=== PATIENT | female | born 1995 | race Caucasian/White ===

== ENCOUNTER 2021-05-07 20:25 | Inpatient (IN) | payer OTHER ==
[2021-05-07] MEDS ORDERED: DINOPROSTONE 10 MG VAGINAL SUPPOSITORY VG ONE (22:00)
[2021-05-07 22:02] LABS: BASO % 0.3 % (0-2.0); EOS % 0.3 % (0-4.5); HEMATOCRIT 25.5 % (32.4-45.2); MCHC 31.5 g/dl (32.0-36.0); MEAN CELL VOLUME 66.6 fl (80-96); MEAN PLT VOLUME 7.1 fl (7.5-11.1); MONO % 5.2 % (3.8-10.2); NEUT % 75.2 % (42.8-82.8); PLATELET COUNT 505 10^3/uL (134-434); RBC 3.83 M/mm3 (3.60-5.2); WHITE BLOOD COUNT 6.2 K/mm3 (4.0-10.0)
[2021-05-07 22:07] LABS: INR 1.28 (0.83-1.09); PROTHROMBIN TIME (PATIENT) 14.4 SEC (9.7-13.0)
[2021-05-07 22:09] LABS: ACTIVATED PTT 26.7 SECONDS (25.2-36.5)
[2021-05-07 22:28] LABS: CALCIUM 8.3 mg/dL (8.5-10.1)
[2021-05-07 22:29] LABS: BLOOD UREA NITROGEN 6.5 mg/dL (7-18)
[2021-05-07 22:32] LABS: CREATININE 0.5 mg/dL (0.55-1.3)
[2021-05-07 22:53] VITALS: BMI 31.3
[2021-05-07 23:39] LABS: ANISOCYTOSIS 3+; MACROCYTOSIS 0; OVALOCYTE 1+; PLATELET ESTIMATE INCREASED
[2021-05-08 01:11] LABS: BASO % 0.6 % (0-2.0); EOS % 0.3 % (0-4.5); HEMATOCRIT 23.8 % (32.4-45.2); HEMOGLOBIN 7.5 GM/dL (10.7-15.3); LYMPH % 23.3 % (8-40); MCH 21.3 pg (25.7-33.7); MCHC 31.7 g/dl (32.0-36.0); MEAN CELL VOLUME 67.1 fl (80-96); MONO % 5.8 % (3.8-10.2); PLATELET COUNT 442 10^3/uL (134-434); RBC 3.54 M/mm3 (3.60-5.2); RDW 19.4 % (11.6-15.6); WHITE BLOOD COUNT 6.3 K/mm3 (4.0-10.0)
[2021-05-08 01:20] LABS: INR 1.33 (0.83-1.09); PROTHROMBIN TIME (PATIENT) 14.9 SEC (9.7-13.0)
[2021-05-08] MEDS ORDERED: IRON SUCROSE INJECTION 300 MG in SODIUM CHLORIDE 235 ML IVPB ONE (03:45)
[2021-05-08] MEDS ORDERED: DEXTROSE 5%-WATER - 1,000 ML IV SCH (06:30)
[2021-05-08] MEDS ORDERED: DEXTROSE 5%-LACTATED RINGERS 1,000 ML IV SCH (08:30)
[2021-05-08] MEDS ORDERED: OXYTOCIN 30 UNITS in 0.9% NS 30 UNIT/500 ML INFUS.BAG IVPB ONE (08:32)
[2021-05-08] MEDS ORDERED: OXYTOCIN 30 UNITS in 0.9% NS 30 UNIT/500 ML INFUS.BAG IVPB SCH (09:00)
[2021-05-08] MEDS ORDERED: SODIUM CHLORIDE 1,000 ML IV STA (11:21)
[2021-05-08] MEDS ORDERED: PCA PUMP NR ONE (11:25)
[2021-05-08] MEDS ORDERED: FENTANYL/BUPIVACAINE/NS/PF - PCEA - 50 ML DISP.SYRIN EP ONE (11:25)
[2021-05-08] MEDS ORDERED: NALOXONE HCL 0.4 MG/ML VIAL IVPUSH PRN (11:40)
[2021-05-08] MEDS ORDERED: BUPIVACAINE HCL/PF 0.25% (2.5MG/ML) 10 ML VIAL ONE (11:42)
[2021-05-08] MEDS ORDERED: FENTANYL/BUPIVACAINE/NS/PF - PCEA - 50 ML DISP.SYRIN EP SCH (11:45)
[2021-05-08 16:20] LABS: CORD HCO3 21.4 mmHg (20-29); CORD PCO2 36.5 mmHg (30-78); CORD pH 7.385 (7.14-7.44)
[2021-05-08] MEDS ORDERED: BENZOCAINE 20% 57 GM BOTTLE TP PRN (20:04)
[2021-05-08] MEDS ORDERED: ACETAMINOPHEN 325 MG TABLET (FP) PO PRN (20:04)
[2021-05-08] MEDS ORDERED: WITCH HAZEL 50% (TUCKS) 40 PAD/JAR PAD TP PRN (20:04)
[2021-05-08] MEDS ORDERED: BENZOCAINE 28 GM HEMORRHOIDAL OINTMENT TP PRN (20:04)
[2021-05-08] MEDS ORDERED: OXYTOCIN 20 UNITS in 0.9% NS 20 UNIT/1,000 ML INFUS.BAG IV SCH (20:15)
[2021-05-08] MEDS: IBUPROFEN 600 MG TABLET (FP) PO PRN (20:43)
[2021-05-09 07:59] LABS: BASO % 0.6 % (0-2.0); EOS % 0.7 % (0-4.5); HEMATOCRIT 21.2 % (32.4-45.2); LYMPH % 16.4 % (8-40); MCH 21.6 pg (25.7-33.7); MCHC 31.8 g/dl (32.0-36.0); MEAN CELL VOLUME 67.8 fl (80-96); MEAN PLT VOLUME 7.4 fl (7.5-11.1); MONO % 4.8 % (3.8-10.2); NEUT % 77.5 % (42.8-82.8); PLATELET COUNT 401 10^3/uL (134-434); RBC 3.12 M/mm3 (3.60-5.2); RDW 19.6 % (11.6-15.6); WHITE BLOOD COUNT 8.5 K/mm3 (4.0-10.0)
[2021-05-09 09:20] LABS: HEMOGLOBIN 6.7 GM/dL (10.7-15.3)
[2021-05-09] MEDS: FERROUS SO4 325 MG TABLET (FP) PO SCH ×3 (09:57→18:44)
[2021-05-09] MEDS: IBUPROFEN 600 MG TABLET (FP) PO PRN (09:57)
[2021-05-09] MEDS ORDERED: FLU VACC QS2021-22(6MOS UP)/PF 60 MCG/0.5 ML SYRINGE IM ONE (10:00)
[2021-05-10] MEDS: FERROUS SO4 325 MG TABLET (FP) PO SCH (08:59)
[2021-05-10 12:16] VITALS: BP 100/62; PULSE 76; TEMP 98.6
== END 2021-05-10 11:45 | disposition home or self-care (01) | DRG 560 ==
LOC: JLDR 20:25 → J3W 05-08 17:37
PROVIDERS: ADMIT Obstetrics & Gynecology Maternal & Fetal Medicine; ATTEND Obstetrics & Gynecology Maternal & Fetal Medicine
PROC: 3E0P7VZ Introduction of Hormone into Female Reproductive, Via Natural or Artificial Opening (ICD-10-PCS; 2021-05-07)
PROC: 10E0XZZ Delivery of Products of Conception, External Approach (ICD-10-PCS; principal; 2021-05-08)
DX: O99.02 Anemia complicating childbirth (principal); Z3A.39 39 weeks gestation of pregnancy; Z37.0 Single live birth
CPT/HCPCS: 36415; 36600; 59409; 80048; 82803; 85025; 85610; 85730; 86780; 86850; 86900; 86901; 90686; C9803; G0008; J1756; U0003; U0005